=== PATIENT | female | born 1960 | race Caucasian/White ===

== ENCOUNTER 2025-05-04 23:14 | Emergency (ER) | payer OTHER, SELFPAY ==
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
--- OUTSIDE RECORDS SUMMARY | 2025-05-04 23:17 | XMS_ITS | Clinical Summary ---
Author Organization [facility] [address] [facility] Address [address] [facility] [place] [address] Care Team Providers Care Auto Body Detailer Name Role Phone Carlos Luevano MD Primary Care Provider + Allergies Active Allergy Reactions Criticality Noted Date Comments Sulfamethoxazole-Trimetho prim Hives Medium 10/29/2024 Clarithromycin Unknown,Hives Medium 12/16/2016 Hives Nickel Rash Medium 02/09/2022 Povidone-Iodine Rash Medium 07/22/2019 IV and topical both Propoxyphene Unknown,Hives Medium 12/16/2016 Hives Shellfish Hives,Shortness of breath,Itching High 01/03/2019 Medications meclizine (ANTIVERT) 25 mg tabletIndication s:Vertigo Take 1 tablet (25 mg total) by mouth every 6 (six) hours as needed for dizziness 60 tablet 2 01/16/20 19 Active albuterol HFA (PROVENTIL HFA,VENTOLIN HFA,PROAIR HFA) 90 mcg/actuation inhalerIndicatio ns:Mild intermittent asthma without complication USE 2 INHALATIONS EVERY 6 HOURS NEEDED FOR WHEEZING 25.5 g 03/20/20 23 Active amitriptyline (ELAVIL) 25 mg tablet TAKE 1 TABLET NIGHTLY 90 tablet 1 09/11/19 25 Active lancets (AdviqoTouch Delica Plus Lancet) 33 gauge miscIndications: Type 2 diabetes mellitus with hyperglycemia, without long-term current use of insulin (HCC) USE 1 LANCET ONCE DAILY 100 each 1 09/11/19 25 Active blood glucose diagnostic (OneTouch Verio test strips) stripIndications :Type 2 diabetes mellitus with hyperglycemia, without long-term current use of insulin ([facility]) USE 1 STRIP ONCE DAILY 100 strip 1 09/27/19 25 Active ibuprofen (ADVIL,MOTRIN) 600 mg tablet Take 1 tablet (600 mg total) by mouth 3 (three) times a day Active pantoprazole DR (PROTONIX) 40 mg EC tabletIndication s:Gastroesophage al reflux disease without esophagitis TAKE 1 TABLET TWICE A DAY 180 tablet 1 12/27/19 25 Active Jardiance 25 mg tabletIndication s:Type 2 diabetes mellitus with hyperglycemia, without long-term current use of insulin ([facility]) TAKE 1 TABLET DAILY 90 tablet 1 01/15/20 25 Active propranoloL (INDERAL) 40 mg tablet TAKE 1 TABLET DAILY 90 tablet 1 01/21/20 25 Active sertraline (ZOLOFT) 50 mg tabletIndication s:Current moderate episode of major depressive disorder without prior episode ([facility]) TAKE 1 TABLET DAILY 90 tablet 1 01/28/20 25 Active metFORMIN XR (GLUCOPHAGE XR) 500 mg 24 hr tabletIndication s:Type 2 diabetes mellitus with hyperglycemia, without long-term current use of insulin ([facility]) Take 1 tablet (500 mg total) by mouth daily with breakfast 90 tablet 1 04/07/20 25 Active atorvastatin (LIPITOR) 10 mg tabletIndication s:Type 2 diabetes mellitus without complication, without long-term current use of insulin ([facility]) Take 1 tablet (10 mg total) by mouth daily 90 tablet 1 04/14/20 25 Active atorvastatin (LIPITOR) 10 mg tabletIndication s:Type 2 diabetes mellitus without complication, without long-term current use of insulin ([facility]) Take 1 tablet (10 mg total) by mouth daily 30 tablet 04/11/20 25 Active atorvastatin (LIPITOR) 10 mg tabletIndication s:Type 2 diabetes mellitus without complication, without long-term current use of insulin ([facility]) TAKE 1 TABLET DAILY 90 tablet 1 09/09/19 25 025 Discontin ued(Reord er) metFORMIN XR (GLUCOPHAGE XR) 500 mg 24 hr tabletIndication s:Type 2 diabetes mellitus with hyperglycemia, without long-term current use of insulin ([facility]) TAKE 1 TABLET DAILY WITH BREAKFAST 90 tablet 1 09/11/19 25 025 Discontin ued(Reord er) Active Problems Problem Noted Date Diagnosed Date Trigger finger of right thumb 10/03/2024 Acute nasopharyngitis 07/17/2024 Assessment & Plan (07/17/2024 4:11 PM PROBATION SUPERVISOR): Most likely viral. Will try a medrol dosepak Acquired trigger finger 12/27/2022 Acute gastritis without hemorrhage 11/02/2022 Assessment & Plan (01/03/2024 12:49 PM CDT): Stable on pantoprazole Assessment & Plan (11/02/2022 4:06 PM CDT): Will try pantoprazole 40 mg twice a aday Osteoarthritis of carpometacarpal (CMC) joint of left thumb 10/04/2021 Vaccine reaction 04/06/2021 Assessment & Plan (04/06/2021 1:55 PM CDT): Multiple reactions to childhood vaccines which required hospijtalization. Unclear if she would a reaction to the COVID 19 vaccination. Chronic right-sided low back pain with right-melina ed sciatica 09/28/2020 Assessment & Plan (01/20/2025 2:27 PM CDT): Still having pain. Will refer to PT. Continue ibuprofen Assessment & Plan (12/02/2024 12:58 PM CDT): Continue the ibuprofen 800 mg three times a day. Will start a medrol dosepak. Assessment & Plan (09/28/2020 1:35 PM PROBATION SUPERVISOR): Positive straight leg. No weakness. Continue ibuprofen 800 mg three times day. Medrol dosepak. Recommend doing PT. Current moderate episode of major depressive disorder without prior episode 02/06/2020 Assessment & Plan (01/07/2025 12:02 PM CDT): Stable on sertraline and amitriptyline Assessment & Plan (07/15/2024 12:38 PM PROBATION SUPERVISOR): Stable on sertraline and amitriptyline Assessment & Plan (01/03/2024 12:49 PM CDT): Stable on sertraline and amitriptyline Assessment & Plan (06/27/2023 4:34 PM PROBATION SUPERVISOR): Stable on sertraline and amitriptyline Assessment & Plan (11/01/2022 7:37 AM CDT): Stable on sertraline and amitriptyline Assessment & Plan (04/25/2022 10:11 AM CDT): On sertraline and amitriptyline Assessment & Plan (10/11/2021 3:31 PM CDT): Stable on sertraline and amitriptyline Assessment & Plan (04/06/2021 1:54 PM CDT): Positive depression screening. Continue sertraline and amitriptyline. She does not want to change or increase medications at this time. Assessment & Plan (09/25/2020 7:07 AM PROBATION SUPERVISOR): Stable on sertraline Assessment & Plan (03/04/2020 12:53 PM CDT): Improved on sertraline. Vertigo 01/15/2019 Assessment & Plan (06/28/2023 3:50 PM PROBATION SUPERVISOR): Becoming slightly worse. Would try the meclizine twice a day Assessment & Plan (11/01/2022 7:38 AM CDT): Stable on meclizine p.r.n. Assessment & Plan (04/26/2022 3:40 PM CDT): Would try meclizine twice a day scheduled. Assessment & Plan (10/11/2021 3:31 PM CDT): Stable on meclizine p.r.n. Assessment & Plan (04/01/2021 12:53 PM CDT): Stable on meclizine p.r.n. Assessment & Plan (09/25/2020 7:08 AM PROBATION SUPERVISOR): Stable on meclizine p.r.n. Assessment & Plan (02/05/2020 10:56 AM CDT): Stable on meclizine Assessment & Plan (07/19/2019 7:09 AM PROBATION SUPERVISOR): Stable on meclizine Assessment & Plan (01/15/2019 3:00 PM CDT): Will start meclizine prn Hypercholesterolemia 03/08/2017 Assessment & Plan (01/07/2025 12:02 PM CDT): Well controlled on atorvastatin Assessment & Plan (07/15/2024 12:37 PM PROBATION SUPERVISOR): Well controlled on atorvastatin Assessment & Plan (01/03/2024 12:48 PM CDT): Well controlled on atorvastatin Assessment & Plan (06/27/2023 4:34 PM PROBATION SUPERVISOR): Well controlled on atorvastatin Assessment & Plan (11/01/2022 7:37 AM CDT): Well controlled on atorvastatin Assessment & Plan (04/25/2022 10:11 AM CDT): Improving on atorvastatin Assessment & Plan (10/11/2021 3:30 PM CDT): Cholesterol is improved on atorvastatin Assessment & Plan (04/01/2021 12:52 PM CDT): LDL remains elevated. Started on atorvastatin 10 mg q.h.s. Assessment & Plan (09/25/2020 7:06 AM PROBATION SUPERVISOR): LDL is elevated. Stress low-cholesterol diet. Assessment & Plan (02/05/2020 10:55 AM CDT): LDL is improving, but still mildly elevated. Assessment & Plan (07/19/2019 7:08 AM PROBATION SUPERVISOR): LDL still elevated. Stress low-cholesterol diet Assessment & Plan (01/15/2019 2:56 PM CDT): LDL elevated. Stress low cholesterol diet Morbid obesity with BMI of 45.0-49.9, adult /07/2016 Assessment & Plan (01/07/2025 12:02 PM CDT): BMI Follow-up includes: exercise counseling. Assessment & Plan (12/02/2024 12:47 PM CDT): BMI Follow-up includes: exercise counseling. Assessment & Plan (07/15/2024 12:38 PM PROBATION SUPERVISOR): BMI Follow-up includes: exercise counseling. Assessment & Plan (01/03/2024 12:49 PM CDT): BMI Follow-up includes: exercise counseling. Assessment & Plan (06/27/2023 4:34 PM PROBATION SUPERVISOR): BMI Follow-up includes: exercise counseling. Assessment & Plan (12/13/2022 12:53 PM CDT): BMI Follow-up includes: exercise counseling. Assessment & Plan (11/01/2022 7:38 AM CDT): BMI Follow-up includes: exercise counseling. Assessment & Plan (04/25/2022 10:12 AM CDT): BMI Follow-up includes: exercise counseling. Assessment & Plan (10/11/2021 3:31 PM CDT): BMI Follow-up includes: exercise counseling. Assessment & Plan (04/01/2021 12:53 PM CDT): BMI Follow-up includes: exercise counseling. Assessment & Plan (09/25/2020 7:07 AM PROBATION SUPERVISOR): BMI Follow-up includes: exercise counseling. Assessment & Plan (02/05/2020 10:56 AM CDT): BMI Follow-up includes: exercise counseling. Assessment & Plan (07/19/2019 7:09 AM PROBATION SUPERVISOR): BMI Follow-up includes: exercise counseling. Assessment & Plan (01/15/2019 7:13 AM CDT): BMI Follow-up includes: exercise counseling. Type 2 diabetes mellitus wit h hyperglycemia, without long-term current use of insulin 01/13/2016 Assessment & Plan (01/20/2025 2:22 PM CDT): Hemoglobin A1c was improved, but still increased. Continue metformin XR and Jardiance. Stress ADA diet Assessment & Plan (07/15/2024 12:37 PM PROBATION SUPERVISOR): Hemoglobin A1c was increased. Continue metformin XR. Increase Jardiance to 25 mg once a day. Stress ADA diet Assessment & Plan (01/04/2024 3:04 PM CDT): Hemoglobin A1c was increased. Would change Metformin XL 500 mg once day. Stress ADA diet. She admits to dietary indiscretion. Start Jardiance 10 mg once a day Assessment & Plan (06/27/2023 4:33 PM PROBATION SUPERVISOR): Hemoglobin A1c is stable. Continue metformin. Stress ADA diet. Assessment & Plan (11/01/2022 7:36 AM CDT): Hemoglobin A1c is slightly increased. Continue metformin. Stress ADA diet. Assessment & Plan (04/25/2022 10:10 AM CDT): Well controlled on metformin Assessment & Plan (10/11/2021 3:30 PM CDT): Well controlled on metformin Assessment & Plan (04/01/2021 12:52 PM CDT): Well controlled metformin Assessment & Plan (09/25/2020 7:06 AM PROBATION SUPERVISOR): Well controlled with metformin Assessment & Plan (02/05/2020 10:55 AM CDT): Well controlled on metformin Assessment & Plan (07/19/2019 7:08 AM PROBATION SUPERVISOR): Well controlled on metformin Assessment & Plan (01/15/2019 7:11 AM CDT): Stable on metformin HTN (hypertension) 01/13/2016 Assessment & Plan (01/07/2025 12:02 PM CDT): Stable on propranolol Assessment & Plan (07/15/2024 12:37 PM PROBATION SUPERVISOR): Stable on propranolol Assessment & Plan (01/03/2024 12:48 PM CDT): Stable on propranolol Assessment & Plan (06/27/2023 4:33 PM PROBATION SUPERVISOR): Stable on propranolol Assessment & Plan (11/01/2022 7:37 AM CDT): Stable on propranolol Assessment & Plan (04/25/2022 10:10 AM CDT): Stable on propranolol Assessment & Plan (10/11/2021 3:30 PM CDT): Stable on propranolol Assessment & Plan (04/01/2021 12:52 PM CDT): Stable on propranolol Assessment & Plan (09/25/2020 7:06 AM PROBATION SUPERVISOR): Stable on propranolol Assessment & Plan (02/05/2020 10:55 AM CDT): Stable on propranolol Assessment & Plan (07/19/2019 7:08 AM PROBATION SUPERVISOR): Stable on propranolol Assessment & Plan (01/15/2019 7:11 AM CDT): Stable on propranolol Asthma 01/13/2016 Assessment & Plan (01/07/2025 12:02 PM CDT): Stable on albuterol HFA Assessment & Plan (07/15/2024 12:37 PM PROBATION SUPERVISOR): Stable on albuterol HFA Assessment & Plan (01/03/2024 12:48 PM CDT): Stable on albuterol HFA Assessment & Plan (06/27/2023 4:34 PM PROBATION SUPERVISOR): Stable on albuterol HFA Assessment & Plan (11/01/2022 7:37 AM CDT): Stable on albuterol HFA Assessment & Plan (04/25/2022 10:11 AM CDT): Stable on albuterol HFA Assessment & Plan (10/11/2021 3:30 PM CDT): Stable on albuterol HFA Assessment & Plan (04/01/2021 12:52 PM CDT): Stable on albuterol HFA Assessment & Plan (09/25/2020 7:06 AM PROBATION SUPERVISOR): Stable on albuterol HFA Assessment & Plan (02/05/2020 10:56 AM CDT): Stable on albuterol HFA Assessment & Plan (07/19/2019 7:08 AM PROBATION SUPERVISOR): Stable on albuterol HFA Assessment & Plan (01/15/2019 7:11 AM CDT): Stable on albuterol HFA p.r.n. GERD (gastroesophageal reflux disease) 6 Assessment & Plan (01/07/2025 12:02 PM CDT): Stable on pantoprazole Assessment & Plan (07/15/2024 12:38 PM PROBATION SUPERVISOR): Stable on pantoprazole Assessment & Plan (01/03/2024 12:48 PM CDT): Stable on pantoprazole Assessment & Plan (06/27/2023 4:34 PM PROBATION SUPERVISOR): Stable on pantoprazole Assessment & Plan (12/14/2022 4:20 PM CDT): Improved on pantoprazole, but still having some breakthrough. Would refer to GI Assessment & Plan (11/02/2022 4:01 PM CDT): Will change to pantoprazole 40 mg once a day. Assessment & Plan (04/25/2022 10:11 AM CDT): Stable on omeprazole Assessment & Plan (10/11/2021 3:31 PM CDT): Stable on omeprazole Assessment & Plan (04/01/2021 12:52 PM CDT): Stable on omeprazole Assessment & Plan (09/25/2020 7:07 AM PROBATION SUPERVISOR): Stable on omeprazole Assessment & Plan (02/05/2020 10:56 AM CDT): Stable on omeprazole Assessment & Plan (07/19/2019 7:08 AM PROBATION SUPERVISOR): Stable on omeprazole Assessment & Plan (01/15/2019 7:12 AM CDT): Stable on omeprazole Fibromyalgia 01/13/2016 Assessment & Plan (01/07/2025 12:02 PM CDT): Stable on amitriptyline Assessment & Plan (07/15/2024 12:38 PM PROBATION SUPERVISOR): Stable on amitriptyline Assessment & Plan (01/03/2024 12:49 PM CDT): Stable on amitriptyline Assessment & Plan (06/27/2023 4:34 PM PROBATION SUPERVISOR): Stable on amitriptyline Assessment & Plan (11/01/2022 7:37 AM CDT): Stable on amitriptyline Assessment & Plan (04/25/2022 10:12 AM CDT): Stable on amitriptyline Assessment & Plan (10/11/2021 3:31 PM CDT): Stable on amitriptyline Assessment & Plan (04/01/2021 12:53 PM CDT): Stable on amitriptyline Assessment & Plan (09/25/2020 7:07 AM PROBATION SUPERVISOR): Stable on amitriptyline Assessment & Plan (02/05/2020 10:56 AM CDT): Stable on amitriptyline Assessment & Plan (07/19/2019 7:09 AM PROBATION SUPERVISOR): Stable on amitriptyline Assessment & Plan (01/15/2019 7:12 AM CDT): Stable on amitriptyline Resolved Problems Problem Noted Date Diagnosed Date Resolved Date Other dysphagia 12/14/2022 01/03/2024 Assessment & Plan (12/14/2022 4:22 PM CDT): Needs an EGD Neck pain 04/26/2022 01/03/2024 Assessment & Plan (04/26/2022 3:46 PM CDT): Ok to try chiropractor. Patellar tendinitis of right knee 04/26/2022 01/03/2024 Assessment & Plan (04/26/2022 3:48 PM CDT): Would try ibuprofen 600 mg three times a day for 1 weeks. COVID-19 virus infection 10/12/2021 Assessment & Plan (10/12/2021 3:29 PM CDT): Could be long haul symptoms from COVID. Dysuria 12/11/2020 10/11/2021 Assessment & Plan (12/11/2020 1:31 PM CDT): UA is normal today. Due to persistent sx will check culture. Will treat vaginal pruritus with diflucan for possible yeast infection. Can take Azo for urinary sx. Morbid obesity 08/31/2016 07/19/2019 Assessment & Plan (01/15/2019 7:12 AM CDT): BMI Follow-up includes: exercise counseling. Encounters Date Type Department Care Team Description 04/11/2025 Telephone [facility] Primary Care [address] [place] [id number] Carlos Luevano MD Med Refill 04/07/2025 4:45 PM CDT Therapy [facility] OP Physical Therapy [address] [place] [phone] Carol Chaves, PT Chronic right-sided low back pain with right-sided sciatica (Primary Dx) 04/07/2025 4:30 PM CDT Therapy [facility] OP Physical Therapy [address] [place] [phone] Mell Trujillo, PC TECH Chronic right-sided low back pain with right-sided sciatica (Primary Dx) 04/03/2025 3:45 PM CDT Therapy [facility] OP Physical Therapy [address] [place] [phone] Mell Trujillo, PC TECH Chronic right-sided low back pain with right-sided sciatica (Primary Dx) 04/01/2025 3:45 PM CDT Therapy [facility] OP Physical Therapy [address] [place] [id number] Amarilis Brower, PC TECH Chronic right-sided low back pain with right-sided sciatica (Primary Dx) 03/28/2025 3:45 PM CDT Therapy [facility] OP Physical Therapy [address] [place] [phone] Mell Trujillo, PC TECH Chronic right-sided low back pain with right-sided sciatica (Primary Dx) 03/26/2025 3:45 PM CDT Therapy [facility] OP Physical Therapy [address] [place] [phone] Ly White, PC TECH Chronic right-sided low back pain with right-sided sciatica (Primary Dx) 03/20/2025 3:45 PM CDT Therapy [facility] OP Physical Therapy [address] [place] [phone] Mell Trujillo, PC TECH Chronic right-sided low back pain with right-sided sciatica (Primary Dx) 03/17/2025 3:45 PM CDT Therapy [facility] OP Physical Therapy [address] [place] [phone] Amarilis Brower, PC TECH Chronic right-sided low back pain with right-sided sciatica (Primary Dx) 03/13/2025 4:30 PM CDT Therapy [facility] OP Physical Therapy [address] [place] [phone] Mell Trujillo, PC TECH Chronic right-sided low back pain with right-sided sciatica (Primary Dx) 03/10/2025 4:30 PM CDT Therapy [facility] OP Physical Therapy [address] [place] [phone] Mell Trujillo, PC TECH Chronic right-sided low back pain with right-sided sciatica (Primary Dx) 03/06/2025 2:15 PM CDT Therapy [facility] OP Physical Therapy [address] [place] [address] [phone] Sophie Mederos, PC TECH Chronic right-sided low back pain with right-sided sciatica (Primary Dx) 03/04/2025 3:45 PM CDT Therapy [facility] OP Physical Therapy [address] [place] [phone] Amarilis Brower, PC TECH Chronic right-sided low back pain with right-sided sciatica (Primary Dx) 02/27/2025 Plan of Care Documentation [facility] OP Physical Therapy [address] [place] [phone] 02/26/2025 1:00 PM CDT Therapy [facility] OP Physical Therapy [address] [place] [phone] Carol Chaves, PT Chronic right-sided low back pain with right-sided sciatica (Primary Dx) from Last 3 Months Immunizations Immunization Administration Dates Next Due Influenza, Unspecified 12/02/2024(Deferr ed: Patient decision),11/02/2022(Deferred: Patient decision) TD Preservative Free 11/06/2000 Tetanus toxoid, adsorbed 11/06/2000 Surgical History Surgery Date Site/Laterality Comments CHOLECYSTECTOMY 07/31/1991 - 07/30/1992 HYSTERECTOMY 07/31/1994 - 07/30/1995 CARPAL TUNNEL RELEASE 07/31/1995 - 07/30/1996 Bilateral ULNAR NERVE REPAIR 07/31/1997 - 07/30/1998 TONSILLECTOMY 07/31/1963 - 07/30/1964 APPENDECTOMY 07/31/1971 - 07/30/1972 ABDOMINAL SURGERY laparascopic surgery, 79. 80, 82 & 92 KNEE SURGERY 07/31/1998 - 07/30/1999 Left arthroscopic ELBOW SURGERY 07/31/2001 - 07/30/2002 Left FOOT SURGERY 07/31/2002 - 07/30/2003 Left tendon release FOOT SURGERY 07/31/2006 - 07/30/2007 Bilateral WRIST SURGERY 07/31/2003 - 07/30/2004 Right WRIST SURGERY Right decompression radial tunnel THUMB SURGERY 07/31/2005 - 07/30/2006 Right ROTATOR CUFF REPAIR 07/31/2008 - 07/30/2009 Right LEG SURGERY 07/31/2009 - 07/30/2010 Right BACK SURGERY 07/31/2012 - 07/30/2013 SHOULDER SURGERY 07/25/[address] Shultz KNEE ARTHROSCOPY W/ LATERAL RELEASE 2019 SPINE SURGERY Medical History Medical History Date Comments Type 2 diabetes mellitus without complications 2018 not using insulin Hypertension Hypercholesterolemia Asthma GERD (gastroesophageal reflux disease) Fibromyalgia Morbid obesity (HCC) Allergic rhinitis Delayed emergence from general anesthesia Headache Depression History of COVID-19 07/2021 no hospitala zation History of blood clots 2009 right leg which is resolved. Wears glasses Anxiety 08/2003 Peptic ulceration 1989 Family History Medical History Relation Name Comments Diabetes Brother 1 Bashir Mallicoat Drug abuse Brother 2 Noam Miriam Anemia Daughter Bria Patty Mental illness Daughter Bria Brambila Miscarriages / Stillbirths Daughter Bria Jackson Diabetes Father Juni Mallicoat Heart attack Father Juni Mallicoat Heart disease Father Juni Mallicoat Hypertension Father Juni Mallicoat Kidney disease Father Juni Mallicoat Cancer Father's Brother Hardik Mallicoat Diabetes Maternal Grandmother Makenzie Adams Heart attack Maternal Grandmother Makenzie Adams Anemia Mother Carin Mallicoat Arthritis Mother Carin Mallicoat Diabetes Mother Carin Mallicoat Heart attack Mother Carin Mallicoat Heart disease Mother Carin Mallicoat Hypertension Mother Carin Mallicoat Kidney disease Mother Carin Mallicoat Stroke Mother Carin Mallicoat Diabetes Mother's Brother Francisco Castro Breast cancer Sister 1 mat Breast cancer Sister 2 [place] Cancer Sister 3 Mat [place] Cancer Sister 4 [facility] Relation Name Status Comments Brother 1 Bashir Mallicoat Brother 2 Noam Miriam Daughter Bria Jackson Father Juni Mallicoat Father's Brother Hardik Mallicoat Maternal Grandmother Makenzie Adams Mother Carin Mallicoat Mother's Brother Francisco Gloria Sister 1 mat Alive Sister 2 enrique Alive Sister 3 Mat [place] Sister 4 [facility] Social History Tobacco Use Types Packs/Day Years Used Date Smoking Tobacco: Never Cigarettes Smokeless Tobacco: Never Tobacco Cessation:Counseling Given: Not Answered Alcohol Use Standard Drinks/Week Comments Not Currently 0 (1 standard drink = 0.6 oz pur e alcohol) AUDIT-C Answer Date Recorded Q1: How often do you have a drink containing alcohol? Never 01/20/2025 Q2: How many drinks containi ng alcohol do you have on a typical day when you are drinking? Patient does not drink Q3: How often do you have si x or more drinks on one occasion? Never 01/20/2025 PHQ-2 Answer Date Recorded PHQ-2 Total Score (If total score is 3 or more points, staff should administer the PHQ-9) 0 01/20/2025 Personal Safety Answer Date Recorded Have you ever been in or are you currently in a harmful physical or emotional relationship or is someone making you feel afraid or unsafe? Denies 10/29/2024 Comments No Sex and Gender Information Value Date Recorded Sex Assigned at Not on file Legal Sex Female 5:04 PM PROBATION SUPERVISOR Gender Identity Female 07/05/2021 8:43 AM PROBATION SUPERVISOR Sexual Orientation Straight 07/05/2021 8: 43 AM PROBATION SUPERVISOR Obstetrics History Para Term AB IAB SAB Ectopic Multiple Livin g Live Births 1 1 1 Date Outcome GA Total Labor Labor/2nd/3rd Weight Sex Type Anes PTL Chery A1 A5 Name Clin Term Last Filed Vital Signs Vital Sign Reading Time Taken Comments Blood Pressure 130/74 01/20/2025 2:11 PM CDT Pulse 85 01/20/2025 2:11 PM CDT Temperature 36.3 C (97.3 F) 01/20/2025 2:11 PM CDT Respiratory Rate 18 01/20/2025 2:11 PM CDT Oxygen Saturation 98% 01/20/2025 2:11 PM CDT Inhaled Oxygen Concentration - - Weight 105.7 kg (233 lb 1.6 oz) 01/20/2025 2:11 PM CDT Height 157.5 cm (5' 2) 01/20/2025 2:11 PM CDT Body Mass Index 42.63 01/20/2025 2:11 PM CDT Plan of Treatment Health Maintenance Due Date Last Done Comments Hepatitis C Screening 1961 Hepatitis B Screening 1979 Regular Well Visit/Exam 18-64 1979 Pneumococcal vaccine <65 (1 of 2 - PCV) 1980 DTaP/Tdap/Td Vaccine (1 - Tdap) 11/07/2000 1, 11/06/2000 Zoster Vaccine (1 of 2) 2011 Foot Exam 01/03/2025 01/04/2024, 04/01, 11/26/2020, Additional history exists Influenza Vaccine (#1) 2025 Hemoglobin A1C 07/17/2025 01/15/2025, 12/0 03/2024, 12/22/2023, Additional history exists Breast Cancer Screening-Mammogram 09/12/2025 09/12/2024, 06/09/2023, 05/21/2022, Additional history exists Albumin Creatinine Ratio, Urine 01/15/2026 01/15/2025, 07/08/2024, 06/07/2023, Additional history exists Lipid Panel 01/15/2026 01/15/2025, 12/0 03/2024, 12/22/2023, Additional history exists eGFR 01/15/2026 01/15/2025, 12/0 03/2024, 12/22/2023, Additional history exists Depression Screening 01/20/2026 01/20/2025, 12/02/2024, 01/04/2024, Additional history exists Dilated Eye Exam 10/09/2026 10/09/2024, 06/2025, 07/15/2023, Additional history exists Colon Cancer Screening-DNA Stool 09/03/2027 09/03/19 25, 04/25/2021 Colon Cancer Screening-FIT Discontinued 09/03/2024, Medical Devices Implanted Type Area Film Archivist Device Identifier Shelf Expiration Date Model / Serial / Lot Clip Clip N/A: Abdomen Description:Clip from jasper addbuzz hernandesr Other - See Comments Other - see comments Right: Shoulder Description:Eaton right otilio ulder Procedures Procedure Name Priority Date/Time Associated Diagnosis Comments COMPREHENSIVE METABOLIC PANEL Routine 01/15/2025 9:01 AM CDT Primary hypertension Hypercholesterole maryam HEMOGLOBIN A1C Routine 01/15/2025 9:01 AM CDT Type 2 diabetes mellitus with hyperglycemia, without long-term current use of insulin (HCC) LIPID PANEL Routine 01/15/2025 9:01 AM CDT Hypercholesterole maryam ALBUMIN CREATININE RATIO, URINE Routine 01/15/2025 9:01 AM CDT Type 2 diabetes mellitus with hyperglycemia, without long-term current use of insulin (HCC) HM DIABETES EYE EXAM Routine 10/09/2024 1:31 PM CDT SCREENING MAMMOGRAM BILATERAL W IAN Schedule Routine, Read Routine (OP Routine) 09/12/2024 4:04 PM PROBATION SUPERVISOR Screening mammogram, encounter for STOOL DNA COLOGUARD Routine 09/03/2024 7:50 PM PROBATION SUPERVISOR Colon cancer screening from Last 3 Months or Most Recently Relevant to Health Maintenance Results * Albumin Creatinine Ratio, Urine (01/15/2025 9:01 AM CDT) Creatinine, ur 89 20 - 275 mg/dL [facility] Microalbumin, ur 0.5 See Note: mg/dL [facility] Comment: Reference Range: Reference Range Not established Microalbumin/creat ratio 6 <30 mg/g creat [facility] Comment: The ADA defines abnormalities in albumin excretion as follows: Albuminuria Category Result (mg/g creatinine) Normal to Mildly increased <30 Moderately increased 30-299 Severely increased > OR = 300 The ADA recommends that at least two of three specimens collected within a 3-6 month period be abnormal before considering a patient to be within a diagnostic category. Urine 01/15/2025 9:01 AM CDT 01/15/2025 9:02 AM CDT Narrative [facility] - 01/16/2025 5:52 AM CDT FASTING:YES FASTING: YES us Carlos Luevano MD LAB URINE ORDERABLES Fin al Result [facility] [id number] [address] [address] * (ABNORMAL) Hemoglobin A1c (01/15/2025 9:01 AM CDT) Hgb A1C 8.4(H) <5.7 % of total Hgb [facility] Comment: For someone without known diabetes, a hemoglobin A1c value of 6.5% or greater indicates that they may have diabetes and this should be confirmed with a follow-up test. For someone with known diabetes, a value <7% indicates that their diabetes is well controlled and a value greater than or equal to 7% indicates suboptimal control. A1c targets should be individualized based on duration of diabetes, age, comorbid conditions, and other considerations. Currently, no consensus exists regarding use of hemoglobin A1c for diagnosis of diabetes for children. Blood 01/15/2025 9:01 AM CDT 01/15/2025 9:02 AM CDT Narrative [facility] - 01/16/2025 5:52 AM CDT FASTING:YES FASTING: YES Carlos Luevano MD LAB BLOOD ORDERABLES Fin al Result [facility] [address] [place] [address] * Lipid panel (01/15/2025 9:01 AM CDT) [facility] Cholesterol 163 <200 mg/dL [facility] HDL 52 > OR = 50 mg/dL [employer] [facility] Triglycerides 149 <150 mg/dL [facility] LDL 86 mg/dL (calc) [facility] Comment: Reference range: <100 Desirable range <100 mg/dL for primary prevention; <70 mg/dL for patients with CHD or diabetic patients with > or = 2 CHD risk factors. LDL-C is now calculated using the Karla calculation, which is a validated novel method providing better accuracy than the Friedewald equation in the estimation of LDL-C. Ángel BERRY et al. DANIELE. 2013;310(19): 0581-7239 (http://education.SafeTacMag.Voz.io/faq/KGZ222) Chol/HDL ratio 3.1 <5.0 (calc) [facility] Non-HDL, (LDL+VLDL) 111 <130 mg/dL (calc) [facility] Comment: For patients with diabetes plus 1 major ASCVD risk factor, treating to a non-HDL-C goal of <100 mg/dL (LDL-C of <70 mg/dL) is considered a therapeutic option. Blood 01/15/2025 9:01 AM CDT 01/15/2025 9:02 AM CDT Narrative [facility] - 01/16/2025 5:52 AM CDT FASTING:YES FASTING: YES us Carlos Luevano MD LAB BLOOD ORDERABLES Fin al Result [facility] [address] [place] [address] * (ABNORMAL) Comprehensive metabolic panel (01/15/2025 9:01 AM CDT) Glucose 140(H) 65 - 99 mg/dL [facility] Comment: Fasting reference interval For someone without known diabetes, a glucose value >125 mg/dL indicates that they may have diabetes and this should be confirmed with a follow-up test. BUN 20 7 - 25 mg/dL [facility] Creatinine 0.88 0.50 - 1.05 mg/dL [facility] eGFR 74 > OR = 60 mL/min/1.7 3m2 [facility] BUN/creat ratio SEE NOTE: 6 - 22 (calc) [facility] Comment: Not Reported: BUN and Creatinine are within reference range. Sodium 138 135 - 146 mmol/L [facility] Potassium, pl 4.4 3.5 - 5.3 mmol/L [facility] Chloride 102 98 - 110 mmol/L [facility] CO2 24 20 - 32 mmol/L [facility] Calcium 9.2 8.6 - 10.4 mg/dL [facility] Protein, sr 7.0 6.1 - 8.1 g/dL [facility] Albumin 4.1 3.6 - 5.1 g/dL [facility] GLOBULIN 2.9 1.9 - 3.7 g/dL (calc) [facility] Alb/glob ratio 1.4 1.0 - 2.5 (calc) [facility] Bilirubin, total 0.7 0.2 - 1.2 mg/dL [facility] Alk phos 56 37 - 153 U/L [facility] AST 10 10 - 35 U/L [facility] ALT (SGPT) 12 6 - 29 U/L [facility] Blood 01/15/2025 9:01 AM CDT 01/15/2025 9:02 AM CDT Narrative [facility] - 01/16/2025 5:52 AM CDT FASTING:YES FASTING: YES Carlos Luevano MD LAB BLOOD ORDERABLES Fin al Result [facility] [address] [place] [address] * DIABETES EYE EXAM (10/09/2024 1:31 PM CDT) Historical Provider HEALTH MAINTENANCE Final Result * Screening Mammogram Bilateral W Ian (09/12/2024 4:04 PM PROBATION SUPERVISOR) Anatomical Region Laterality Modality Breast Bilateral Mammography Impressions 09/12/2024 4:20 PM PROBATION SUPERVISOR BI-RADS ATLAS category (overall): 1 - Negative There is no mammographic evidence of malignancy. A 1 year screening mammogram is recommended. The patient has been or will be contacted. We recommend annual screening mammography for women at average risk of breast cancer beginning at age 40, based on guidelines of the [employer] (ACR Practice Parameter for the Performance of Screening and Diagnostic Mammography) and [employer]. For women with and elevated risk of breast cancer, please refer to the ACR Practice Parameter for specific screening recommendations. The patient will be entered into a reminder system with a target due date of 1 year for her next screening exam. Narrative 09/12/2024 4:20 PM PROBATION SUPERVISOR Screening Mammogram Bilateral W Ian: 09/12/24 The study was acquired using full field digital technology and interpreted from soft copy. 2D digital mammographic views, as well as 3D digital tomosynthesis were performed in the CC and MLO projections. CLINICAL: Screening mammogram, encounter for. No relevant medical history has been documented for this patient. History of breast cancer in Sister, Sister. COMPARISONS: 06/09/2023 Screening Mammogram Bilateral W Ian 05/21/2022 Screening Mammogram Bilateral W Ian 02/26/2021 Screening Mammogram Bilateral W Ian BREAST TISSUE: The breasts are almost entirely fatty. FINDINGS: No suspicious masses, suspicious calcifications, or other suspicious findings are seen within either breast. There has been no suspicious change. us Self Screening Mammogram IMG MAMMO PROCEDURES Fi nal Result * Stool DNA - Cologuard (09/03/2024 7:50 PM PROBATION SUPERVISOR) Stool DNA - Cologuard Negative Negative [facility] (Bow & DrapeIA #:[id number]) Comment: NEGATIVE TEST RESULT. A negative Cologuard result indicates a low likelihood that a colorectal cancer (CRC) or advanced adenoma (adenomatous polyps with more advanced pre-malignant features) is present. The chance that a person with a negative Cologuard test has a colorectal cancer is less than 1 in 1500 (negative predictive value >99.9%) or has an advanced adenoma is less than 5.3% (negative predictive value 94.7%). These data are based on a prospective cross-sectional study of 10,000 individuals at average risk for colorectal cancer who were screened with both Cologuard and colonoscopy. (Bhavik Magallanes. et al, N Engl J Med 2014;370(14):2587-7589) The normal value (reference range) for this assay is negative. COLOGUARD RE-SCREENING RECOMMENDATION: Periodic colorectal cancer screening is an important part of preventive healthcare for asymptomatic individuals at average risk for colorectal cancer. Following a negative Cologuard result, the [employer] and U.S. Multi-Society Task Force screening guidelines recommend a Cologuard re-screening interval of 3 years. References: [employer] Guideline for Colorectal Cancer Screening: https://www.cancer.org/cancer/jsfcs-buoson-offovk/vzudolirg-hjbzgrsrz-gsfilij/ac s-rec ommendations.html.; aBbatunde HILL, Cash SHABAZZ, Xavi ResendezK, Colorectal Cancer Screening: Recommendations for Physicians and Patients from the U.S. Multi-Society Task Force on Colorectal Cancer Screening , Am J Gastroenterology 2017; 112:3536-2241. TEST DESCRIPTION: Composite algorithmic analysis of stool DNA-biomarkers with hemoglobin immunoassay. Quantitative values of individual biomarkers are not reportable and are not associated with individual biomarker result reference ranges. Cologuard is intended for colorectal cancer screening of adults of either sex, 45 years or older, who are at average-risk for colorectal cancer (CRC). Cologuard has been approved for use by the U.S. FDA. The performance of Cologuard was established in a cross sectional study of average-risk adults aged 50-84. Cologuard performance in patients ages 45 to 49 years was estimated by sub-group analysis of near-age groups. Colonoscopies performed for a positive result may find as the most clinically significant lesion: colorectal cancer [4.0%], advanced adenoma (including sessile serrated polyps greater than or equal to 1cm diameter) [20%] or non- advanced adenoma [31%]; or no colorectal neoplasia [45%]. These estimates are derived from a prospective cross-sectional screening study of 10,000 individuals at average risk for colorectal cancer who were screened with both Cologuard and colonoscopy. (Bhavik Vasquez al, N Engl J Med 2014;370(14):4844-1881.) Cologuard may produce a false negative or false positive result (no colorectal cancer or precancerous polyp present at colonoscopy follow up). A negative Cologuard test result does not guarantee the absence of CRC or advanced adenoma (pre-cancer). The current Cologuard screening interval is every 3 years. ([employer] and U.S. Multi-Society Task Force). Cologuard performance data in a 10,000 patient pivotal study using colonoscopy as the reference method can be accessed at the following location: www.[employer].Voz.io/results. Additional description of the Cologuard test process, warnings and precautions can be found at www.iCar Asiard.com. Stool 09/03/2024 7:50 PM PROBATION SUPERVISOR 09/05/2024 10:16 AM PROBATION SUPERVISOR Carlos Luevano MD LAB BODY FLUIDS AND STOO LS ORDERABLES Final Result [employer] (CLIA #:[id number]) [place] [address] from Last 3 Months or Most Recently Relevant to Health Maintenance Insurance CHOICE PLUS CHOICE PLUS [facility] CHOICE PLUS Care Teams Auto Body Detailer Relationship Specialty Start Date End Date Carlos Luevano MD [address] [place] [address] PCP - General 11/29/18
--- OUTSIDE RECORDS SUMMARY | 2025-05-04 23:17 | XMS_ITS | Encounter Summary ---
Author Organization [facility] Facility Care Team Providers Care Bandage Wrapping Machine Operator Name Role Phone Carlos Luevano MD Primary Care Provider + Encounter Details Date Type Department Care Team (Latest Contact Info) Description 07/06/2018 Orders Only [facility] CLINCONV ProviderSalome MD [address] [place] [id number] Social History Tobacco Use Types Packs/Day Years Used Date Smoking Tobacco: Never Assessed Comments Unknown Sex and Gender Information Value Date Recorded Sex Assigned at Not on file Legal Sex Female 5:04 PM SENIOR SYSTEMS SOFTWARE ENGINEER Gender Identity Female 07/05/2021 8:43 AM SENIOR SYSTEMS SOFTWARE ENGINEER Sexual Orientation Straight 07/05/2021 8: 43 AM SENIOR SYSTEMS SOFTWARE ENGINEER documented as of this encounter Plan of Treatment Not on file documented as of this encounter Procedures Procedure Name Priority Date/Time Associated Diagnosis Comments SCAN - LABS 07/06/2018 12:00 AM SENIOR SYSTEMS SOFTWARE ENGINEER documented in this encounter Results * SCAN - LABS (07/06/2018 12:00 AM SENIOR SYSTEMS SOFTWARE ENGINEER) Narrative 07/06/2018 12:00 AM SENIOR SYSTEMS SOFTWARE ENGINEER Ordered by an unspecified provider. Historical Provider Final Res ult documented in this encounter Visit Diagnoses Not on filedocumented in this encounter Care Teams Bandage Wrapping Machine Operator Relationship Specialty Start Date End Date Carlos Luevano MD [address] [place] [id number] PCP - General 11/29/18 documented as of this encounter
--- OUTSIDE RECORDS SUMMARY | 2025-05-04 23:17 | XMS_ITS | Encounter Summary ---
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 Historical Provider Final Res ult documented in this encounter Visit Diagnoses Not on filedocumented in this encounter Care Teams Bark Press Operator Relationship Specialty Start Date End Date Carlos Luevano MD [address] [place] [id number] PCP - General 11/29/18 documented as of this encounter
[2025-05-04 23:32] VITALS: BP 145/91; PULSE 93; RESP 18; TEMP 36.5; O2SAT 100
[2025-05-05 00:53] VITALS: BP 134/74; PULSE 88; RESP 18; O2SAT 100
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
[2025-05-05] MEDS: HYDROcodone/acetaminophen (*CRX) 5-325 MG TABLET 1 TAB PO (03:30)
[2025-05-05 03:36] VITALS: BP 129/79; PULSE 76; RESP 18; O2SAT 99
== END 2025-05-05 04:11 | disposition home or self-care (01) ==
PROVIDERS: Emergency Provider Student in an Organized Health Care Education/Training Program; PCP Internal Medicine
DX: R51.9 Headache, unspecified (principal); S16.1XXA Strain of muscle, fascia and tendon at neck level, initial encounter; S63.501A Unspecified sprain of right wrist, initial encounter; Y04.0XXA Assault by unarmed brawl or fight, initial encounter
CPT/HCPCS: 73100; 73120; 99283; A9270